=== PATIENT | female | born 1985 | race Caucasian/White ===

== ENCOUNTER 2021-04-12 16:27 | Emergency (ER) | payer BC, SELFPAY ==
[2021-04-12 16:31] VITALS: BP 137/60; PULSE 75; RESP 18; TEMP 36.6; O2SAT 100; BMI 29.9
--- NOTE | 2021-04-12 16:52 | PC.NURSE ---
SHELIA MANN speaking with Dr. Nath
[2021-04-12 16:53] LABS: Microscopic, Urine URINE MICROSCOPIC (MICROSCOPIC)
[2021-04-12 17:00] LABS: Appearance,Urine CLEAR (Clear); Blood, Urine Negative (Negative); Color,Urine YELLOW (Yellow); Glucose,Urine (UA) Negative (Negative); Ketones,Urine 1+ (Negative); Leukocyte Esterase,Urine Negative (Negative); Nitrate,Urine Negative (Negative); PH,Urine 5.5 (5.0-8.5); Protein,Urine 1+ (Negative); Specific Gravity, Urine >= 1.030 (1.005-1.030)
[2021-04-12 17:07] LABS: Eosinophils # 0.1 K/mm3 (0.0-0.4); Eosinophils % 2.3 % (0.1-12.0); Hematocrit 46.3 % (37.0-47.0); Hemoglobin 15.4 g/dL (12.2-16.2); Lymphocytes # 0.8 K/mm3 (0.7-4.5); Lymphocytes % 19.8 % (10-50); Mean Corpuscular HGB Conc 33.2 g/dL (31.8-35.4); Mean Corpuscular Hemoglobin 30.8 pg (27.0-31.2); Mean Corpuscular Volume 92.6 fl (81-99); Mean Platelet Volume 7.7 fl (7.4-10.4); Monocytes # 0.3 K/mm3 (0.1-1.0); Monocytes % 6.6 % (1.7-9.3); Neutrophils # 2.8 K/mm3 (1.8-7.8); Neutrophils % 70.2 % (37.0-80.0); Platelet Count 251 K/mm3 (142-424); Red Cell Distribution Width 12.5 % (11.5-17.5)
[2021-04-12 17:34] LABS: Alanine Aminotransferase 21 U/L (12-78); Albumin Level 4.5 g/dl (3.5-5.0); Albumin/Globulin Ratio 1.6 (1.1-1.8); Alkaline Phosphatase 65 U/L (38-126); Anion Gap 12.9 mEq/L (5-15); Aspartate Amino Transferase 34 U/L (14-36); Bilirubin,Total 0.5 mg/dl (0.2-1.3); Blood Urea Nitrogen 17 mg/dl (7-17); Carbon Dioxide 30 mmol/L (22.0-30.0); Chloride 97 mmol/L (98-107); Creatinine Clearance Estimated 95 mL/min (50-200); Estimated Glomerular Filt Rate 51 ml/min (>60); GFR (African American) 62 ML/MIN (>60); Globulin 2.9 g/dL (1.3-3.2); Glucose 94 mg/dl (74-100); Potassium 3.9 mmoL/L (3.5-5.1); Sodium 136 mmol/L (136-145); Total Protein,Serum 7.4 g/dl (6.3-8.2)
[2021-04-12 18:14] LABS: Bilirubin,Urine 2+ (Negative)
[2021-04-12 18:17] LABS: Amorphous Sediment,Urine 2+ /lpf
[2021-04-12 18:19] LABS: Bacteria,Urine 2+ /lpf
[2021-04-12 19:22] VITALS: BP 102/74; PULSE 71; O2SAT 99
--- NOTE | 2021-04-12 19:35 | ECG_ITS ---
APPROVED REPORT Exam: Resting ECG HR:52 bpm ECG Measurements Heart Rate 52 AXES HI 146 P -15 QRSd 70 QRS -17 QT 474 T 1 QTc 440 Conclusion Sinus bradycardia Junctional ST depression, probably abnormal Abnormal ECG Electronically signed by : Doug Flanagan, 04/13/2021 17:56:46
--- NOTE | 2021-04-12 19:48 | [facility].EDGENADL ---
ED Disposition Clinical Impression: Vertigo, Dizziness Disposition: Home, Self-Care Condition on Discharge: Fair Additional Instructions: Commend not using the diuretic activity as tolerated follow-up with PMD for the bradycardia Referrals: Omero Murray MD [Primary Care Provider] - - Critical Care Critical Care Time: No Attestation: On 04/12/21, the high probability of a clinically significant, sudden or life threatening deterioration of the following system(s) required my full and direct attention, intervention and personal management. The time I documented below is in addition to time spent performing reported procedures but includes the following listed in this critical care notation. Medical Decision Making - Medical Records Medical records reviewed: Yes: I reviewed the patient's medical records. - Terrance Inquiry Pt receiving controlled substance: No Vital Signs: 04/12/21 16:31 04/12/21 19:22 Temperature 97.8 F Temperature Source Oral Pulse Rate 71 Pulse Rate [Left Radial] 75 Respiratory Rate 18 Blood Pressure 102/74 L Blood Pressure [Left Arm] 137/60 Blood Pressure Mean [Left Arm] 85 Blood Pressure Source [Left Arm] Automatic Cuff Blood Pressure Position Sitting Blood Pressure Position [Left Arm] Sitting 02 Sat by Pulse Oximetry 100 99 Oxygen Delivery Method Room Air Room Air - Lab Data Lab Results 04/12/21 16:40: Urine Color Yellow, Urine Appearance Clear, Urine pH 5.5, Ur Specific [place] >= 1.030, Urine Protein 1+, Urine Glucose (UA) Negative, Urine Ketones 1+, Urine Blood Negative, Urine Nitrate Negative, Urine Bilirubin 2+ A, Urine Urobilinogen 2.0, Ur Leukocyte Esterase Negative, Ur Squamous Epith Cells 3-5, Amorphous Sediment 2+, Urine Bacteria 2+, Hyaline Casts 3-5 04/12/21 16:55: WBC 4.0 L, RBC 5.00, Hgb 15.4, Hct 46.3, MCV 92.6, MCH 30.8, MCHC 33.2, RDW 12.5, Plt Count 251, MPV 7.7, Neut % (Auto) 70.2, Lymph % (Auto) 19.8, [place] % (Auto) 6.6, Eos % (Auto) 2.3, Baso % (Auto) 1.0, Neut # (Auto) 2.8, Lymph # (Auto) 0.8, [place] # (Auto) 0.3, Eos # (Auto) 0.1, Baso # (Auto) 0.0 04/12/21 16:55: Sodium 136, Potassium 3.9, Chloride 97 L, Carbon Dioxide 30, Anion Gap 12.9, BUN 17, Creatinine 1.20 H, Estimated Creat Clear 95, Estimated GFR 51 L, Est GFR ( Amer) 62, Glucose 94, Calcium 9.0, Total Bilirubin 0.5, AST 34, ALT 21, Alkaline Phosphatase 65, Total Protein 7.4, Albumin 4.5, Globulin 2.9, Albumin/Globulin Ratio 1.6 Essentially unremarkable consistent with mild dehydration Result diagrams: 04/12/21 16:55 04/12/21 16:55 Orders (Tests/Meds): ED MEDICATIONS Generic Name Dose Route Start Last Admin Trade Name Freq PRN Reason Stop Dose Admin Lactated Ringer's 1,000 mls @ 999 mls/hr 04/12/21 17:15 04/12/21 17:03 Lactated Ringer's 1000 Ml Bag IV 04/12/21 18:15 999 mls/hr .Q1H1M VENKAT Administration Discontinued Medications Generic Name Dose Route Start Last Admin Trade Name Freq PRN Reason Stop Dose Admin Sodium Chloride 1,000 mls @ 999 mls/hr 04/12/21 17:00 04/12/21 17:03 Sod Chlor 0.9% 1000ml Bag IV 04/12/21 18:00 Not Given .Q1H1M VENKAT ORDERS Category Date Time Status Urine Culture Stat Micro 04/12/21 16:40 Received - ECG Data Tracing #1 ECG initial impression date: 04/12/21 (Sinus bradycardia no acute pathology bradycardia) Arrhythmias present: sinus ramu Medical Decision Narrative: 35-year-old female with a history of occasional dizziness has taken meclizine and was prescribed a diuretic for this condition but did not drink enough fluids General Adult HPI - General Chief complaint: Weakness Stated complaint: poss dehydration Time Seen by Provider: 04/12/21 19:45 Mode of Arrival: Ambulatory Limitations: No Limitations Description of Symptoms (Recalled from ER Triage Doc. by RN): pt reports feeling weak, shaky, dizzy, lightheaded since waking up this morning. Pt reports she is concerned she is dehydrated. Pt repor
[2021-04-12 20:40] VITALS: BP 114/72; PULSE 70; RESP 14; TEMP 36.6; O2SAT 98
== END 2021-04-12 20:43 | disposition home or self-care (01) ==
PROVIDERS: Emergency Provider Emergency Medicine; PCP Family Medicine
DX: R42 Dizziness and giddiness (principal)
CPT/HCPCS: 80053; 81001; 85025; 87086; 93005; 96365; 99282